=== PATIENT | male | born 1985 | race Caucasian/White ===

== ENCOUNTER → 2024-03-03 | Emergency (ER) | payer MEDICAID ==
[~2024-03-03] VITALS: Ht 172.7 cm; Wt 75.0 kg
[~2024-03-03] MED LIST: POTASSIUM CHLORIDE 20MEQ TABLET SR PO NR
[2024-03-03 16:08] VITALS: BP 161/112; PULSE 90; RESP 16; TEMP 98.5; O2SAT 100
[2024-03-03 18:07] LABS: CHLORIDE 92 mEq/L (98-107); POTASSIUM 2.9 mEq/L (3.5-5.1); SODIUM 136 mEq/L (136-145)
[2024-03-03 18:08] LABS: CALCIUM 9.8 mg/dL (8.7-10.4); CARBON DIOXIDE 34 mEq/L (21-32)
[2024-03-03 18:13] LABS: CREATININE 0.9 mg/dL (0.6-1.3); GLUCOSE 96 mg/dL (70-105); UREA NITROGEN BLOOD 7 mg/dL (9-23)
[2024-03-03 18:17] LABS: EOSINOPHILS % 0.2 % (0.0-5.0); HEMOGLOBIN. 14.2 g/dL (14.0-18.0); MEAN CORPUSCULAR HEMOGLOBIN 33.4 pg (28.0-32.0); MEAN CORPUSCULAR HGB CONC 34.6 g/dL (31.0-37.0); MEAN CORPUSCULAR VOLUME 96.5 fL (80.0-94.0); MEAN PLATELET VOLUME 9.3 fl (7.4-10.4); MONOCYTES % 7.5 % (2.0-8.0); NEUTROPHILS % 68.3 % (40.0-76.0); PLATELET 205 x1000/uL (130-400); RED BLOOD CELL COUNT 4.25 mill/uL (4.7-6.1); RED CELL DISTRIBUTION WIDTH 14.9 % (11.6-14.6); WHITE BLOOD COUNT 6.3 x1000/uL (4.5-11.0)
== END ==
LOC: ER 15:57
DX: F41.0 Panic disorder [episodic paroxysmal anxiety] (principal); E87.6 Hypokalemia; I10 Essential (primary) hypertension; F41.9 Anxiety disorder, unspecified; F31.9 Bipolar disorder, unspecified
CPT/HCPCS: 36415; 80048; 85025; 99283

== ENCOUNTER 2025-01-15 22:23 | Inpatient (IN) | payer OTHER ==
[~2025-01-15] VITALS: Ht 177.8 cm; Wt 90.8 kg
[2025-01-15 22:27] VITALS: O2SAT 95
[2025-01-15 23:10] LABS: BASOPHILS % 0.8 % (0.0-2.0); EOSINOPHILS % 0.3 % (0.0-5.0); HEMATOCRIT. 45.0 % (42.0-52.0); HEMOGLOBIN. 15.6 g/dL (14.0-18.0); LYMPHOCYTES % 8.9 % (20.0-50.0); MEAN PLATELET VOLUME 8.6 fl (7.4-10.4); MONOCYTES % 6.8 % (2.0-8.0); NEUTROPHILS % 83.2 % (40.0-76.0); PLATELET 255 x1000/uL (130-400); RED BLOOD CELL COUNT 4.64 mill/uL (4.7-6.1); RED CELL DISTRIBUTION WIDTH 16.6 % (11.6-14.6)
[2025-01-15] MEDS: LORAZEPAM 2MG/ML UD SYRINGE IV NR (23:11)
[2025-01-15] MEDS: MAGNESIUM 2 G PREMIX 50 ML IV ONE (23:11)
[2025-01-15 23:24] LABS: CREATININE 1.0 mg/dL (0.6-1.3); ETHANOL BLOOD < 10 mg/dL (<10); TROPONIN I HIGH SENSITIVITY 6 ng/L (3.0-53); UREA NITROGEN BLOOD 10 mg/dL (9-23)
[2025-01-15 23:26] LABS: ASPARTATE AMINOTRANSFERASE 72 IU/L (<34); BILIRUBIN DIRECT 0.3 mg/dL (<=3.0); BILIRUBIN TOTAL 1.1 mg/dL (0.1-1.0); PROTEIN TOTAL 8.8 g/dL (6.0-8.3)
[2025-01-15 23:32] LABS: CLARITY URINE CLOUDY (CLEAR); COLOR URINE DARK YELLOW (YELLOW); GLUCOSE URINE NEGATIVE (NEGATIVE); KETONES URINE 2+ (NEGATIVE); LEUKOCYTE ESTERASE URINE TRACE (NEGATIVE); NITRITE URINE NEGATIVE (NEGATIVE); OCCULT BLOOD URINE NEGATIVE (NEGATIVE); PH URINE 5.5 (4.5-8.0); PROTEIN URINE 3+ (NEGATIVE); SPECIFIC GRAVITY URINE 1.037 (1.005-1.030); UROBILINOGEN URINE 1.0 E.U./dL (0.2-1.0)
[2025-01-15 23:44] LABS: *AMPHETAMINES SCREEN URINE NEGATIVE (NEGATIVE); *BARBITURATES SCREEN URINE NEGATIVE (NEGATIVE); *BENZODIAZEPINES SCREEN URINE NEGATIVE (NEGATIVE); *COCAINE SCREEN URINE NEGATIVE (NEGATIVE); METHADONE URINE SCREEN NEGATIVE (NEGATIVE); OPIATES URINE SCREEN NEGATIVE (NEGATIVE)
[2025-01-15 23:45] LABS: CANNABINOID URINE SCREEN PRESUMPTIVE POSITIVE (NEGATIVE); ECSTASY MDMA SCREEN URINE NEGATIVE (NEGATIVE); PHENCYCLIDINE URINE SCREEN NEGATIVE (NEGATIVE)
[2025-01-16] MEDS ORDERED: GUAIFENESIN 200MG/10ML SUGAR FREE UDC PO PRN (00:30)
[2025-01-16] MEDS ORDERED: LORAZEPAM 2MG/ML UD SYRINGE IV PRN (00:30)
[2025-01-16] MEDS ORDERED: IPRATROPIUM/ALBUTEROL 0.5-3(2.5)MG/3ML NEB HHN PRN (00:30)
[2025-01-16] MEDS ORDERED: DIPHENHYDRAMINE 50MG/ML VIAL IV PRN (00:30)
[2025-01-16] MEDS ORDERED: ONDANSETRON HCL 4MG/2ML INJ IV PRN (00:30)
[2025-01-16] MEDS ORDERED: DOCUSATE SODIUM 100MG CAPSULE PO PRN (00:30)
[2025-01-16] MEDS ORDERED: MAGNESIUM/ALUMINUM HYDROXIDE/SIMETHICONE 30ML UDC PO PRN (00:30)
[2025-01-16 00:49] LABS: RBC URINE 0-2 /hpf (0-2)
[2025-01-16 00:50] LABS: SQUAMOUS EPITHELIAL CELL URINE FEW /lpf (RARE/1+)
[2025-01-16 00:52] LABS: BACTERIA URINE NONE SEEN
[2025-01-16] MEDS: PANTOPRAZOLE SODIUM 40 MG/VIAL IV SCH (01:07)
[2025-01-16] MEDS: LABETALOL 5MG/ML 4ML INJ IV SCH (01:07)
[2025-01-16 01:28] LABS: INR 1.0
[2025-01-16 01:33] LABS: PHOSPHORUS 3.6 mg/dL (2.5-4.9)
[2025-01-16 01:36] LABS: T4 FREE 1.12 ng/dL (0.89-1.76)
[2025-01-16 02:00] VITALS: BP 167/111; PULSE 98; RESP 18; TEMP 36.0288
[2025-01-16] MEDS ORDERED: QUET300T20 PO (02:14)
[2025-01-16] MEDS ORDERED: MIRT-90 PO (02:14)
[2025-01-16] MEDS: CLONIDINE 0.1MG TABLET PO PRN (02:42)
[2025-01-16 03:20] LABS: BG BASE EXCESS 2.6 mmol/L (-2.0-3.0); BG CARBOXYHEMOGLOBIN 0.7 % (0.5-1.5); BG DEOXYHEMOGLOBIN 6.1 % (0.0-5.0); BG HCO3 ACT 26.7 mmol/L (21.0-28.0); BG METHEMOGLOBIN 0.3 % (0.5-1.5); BG OXYGEN SATURATION 93.8 % (94.0-98.0); BG OXYHEMOGLOBIN 92.9 % (94.0-98.0); BG PCO2 39.7 mmHg (35.0-48.0); BG PH 7.446 (7.350-7.450); BG PO2 70.2 mmHg (83.0-108.0); BG SAMPLE SITE RIGHT RADIAL; BG TOTAL HEMOGLOBIN 15.3 g/dL (13.5-17.5); BG VENT MODE ROOM AIR
[2025-01-16 04:00] VITALS: BP 154/96; PULSE 71; RESP 18; TEMP 36.6; O2SAT 97
[2025-01-16] MEDS: MVI, ADULT NO.1 10 ML, THIAMINE HCL 100 MG, FOLIC ACID 1 MG in SODIUM CHLORIDE 0.9% 1,0... IV SCH (04:00)
[2025-01-16] MEDS: AMLODIPINE 5MG TABLET PO SCH (05:39)
[2025-01-16] MEDS: CHLORDIAZEPOXIDE 25MG CAPSULE PO SCH (05:39)
[2025-01-16] MEDS: HYDRALAZINE HCL 25MG TABLET PO SCH (05:40)
[2025-01-16] MEDS: NICOTINE 7MG PATCH TD SCH (05:40)
[2025-01-16 07:16] LABS: FOLIC ACID (FOLATE) SERUM 8.99 ng/mL (>5.38); VITAMIN B12 SERUM 370 pg/mL (211-911)
[2025-01-16 08:00] VITALS: BP 138/96; PULSE 91; RESP 18; TEMP 36.7; O2SAT 100
[2025-01-16] MEDS: FOLIC ACID 1MG TABLET PO SCH (09:07)
[2025-01-16] MEDS: MULTIVITAMINS,THER W-MINERALS TABLET PO SCH (09:07)
[2025-01-16] MEDS: THIAMINE HCL 100 MG/1 ML 2ML VIAL IM SCH (09:07)
[2025-01-16] MEDS: AMLODIPINE 10MG TABLET PO SCH (09:07)
[2025-01-16] MEDS ORDERED: PNEUMOCOCCAL 20-VAL CONJ-DIP CRM 0.5ML IM ONE (10:15)
[2025-01-16] MEDS ORDERED: NICO-786 TD (10:51)
[2025-01-16] MEDS ORDERED: AMLO10TA80 PO (10:51)
[2025-01-16] MEDS ORDERED: CHLO25CA10 PO (10:51)
[2025-01-16 11:17] VITALS: BP 154/96; PULSE 91; RESP 18; TEMP 98
[2025-01-16] MEDS ORDERED: QUETIAPINE FUMARATE 50MG TABLET PO SCH (21:00)
[2025-01-17] MEDS ORDERED: THIAMINE HCL 100MG TABLET PO SCH (09:00)
== END 2025-01-16 11:25 | disposition left against medical advice (07) | DRG 304 ==
LOC: ER 22:23 → 7WST 01-16 00:17 → EDBEDREQ 01-16 00:19 → EDBEDREQTM 01-16 00:19 → EDBEDREQDT 01-16 00:19 → ENRESERV 01-16 00:53
PROVIDERS: ADMIT Internal Medicine; ATTEND Internal Medicine
DX: I16.0 Hypertensive urgency (principal); G92.8 Other toxic encephalopathy; F10.239 Alcohol dependence with withdrawal, unspecified; Z59.00 Homelessness unspecified; F17.210 Nicotine dependence, cigarettes, uncomplicated; F31.9 Bipolar disorder, unspecified; Z53.29 Procedure and treatment not carried out because of patient's decision for other reasons; I10 Essential (primary) hypertension; Y90.9 Presence of alcohol in blood, level not specified; F12.20 Cannabis dependence, uncomplicated
CPT/HCPCS: 36415; 36600; 71045; 80048; 80076; 80305; 80320; 81003; 82140; 82375; 82607; 82746; 82805; 83036; 83605; 83735; 83880; 83930; 84100; 84439; 84443; 84484; 85025; 93005; 99285; J2060; J2470; J3411; J3475; J3490; J7030; G0480